=== PATIENT | female | born 2000 | race Caucasian/White ===

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

== ENCOUNTER 2019-03-12 21:22 | Emergency (ER) | payer OTHER ==
[2019-03-12 21:28] VITALS: BP 133/73; TEMP 98.3; BMI 20.2
--- NOTE | 2019-03-12 21:30 | PDOC ---
Rapid Medical Evaluation Chief Complaint: Injury Time Seen by Provider: 03/12/19 21:24 Medical Evaluation: Allergies Allergy/AdvReac Type Severity Reaction Status Date / Time No Known Allergies Allergy Verified 08/27/18 03:14 03/12/19 21:26 I have performed a brief in-person evaluation of this patient. The patient presents with a chief complaint of: bruising , concerns as is being worked up for Lupus and worries could be associated. Pertinent physical exam findings: Pale, ecchymosis to anterior left ankle I have ordered the following: UA/ uCG The patient will proceed to the ED for further evaluation. Discharge Disposition - Diagnosis Bruising - Discharge Dispostion Condition at time of disposition: Stable - Referrals - Patient Instructions - Post Discharge Activity
--- NOTE | 2019-03-12 21:56 | PDOC ---
History of Present Illness - General Chief Complaint: Injury Stated Complaint: BRUised L ANKLE Time Seen by Provider: 03/12/19 21:24 - History of Present Illness Initial Comments: 03/12/19 21:51 Chief complaint: Ankle bruising Patient is a 18-year-old female who was recently diagnosed with lupus, but has not gotten full information regarding her diagnosis, is not on any treatment or medication. Patient saw her doctor today and had some work-up but she noticed this evening that she had bruising to the front of her ankle and was told anytime she had bruising to have it evaluated. Patient denies any other bleeding. GENERAL/CONSTITUTIONAL: No fever, weakness. dizziness HEAD, EYES, EARS, NOSE AND THROAT: No change in vision. No ear pain or discharge. No sore throat. CARDIOVASCULAR: No chest pain RESPIRATORY: No shortness of breath or cough GASTROINTESTINAL: No pain, nausea, vomiting, diarrhea or constipation GENITOURINARY: No dysuria MUSCULOSKELETAL: No neck or back pain SKIN: No rash, + bruising NEUROLOGIC: No headache, vertigo, loss of consciousness, or loss of sensation. GENERAL: The patient is awake, alert, and fully oriented, in no acute distress. HEAD: Normal with no signs of trauma. EYES: Pupils equal, round and reactive to light, sclera anicteric, conjunctiva clear. ENT: pharynx: no erythema, no exudate, uvula midline NECK: supple CHEST: clear, nontender, rr ABD: soft, nontender BACK: no tenderness or signs of injury EXTREMITIES: Left lower extremity with 6 cm x 3 cm oval area of bruising over the anterior ankle joint, no swelling, no tenderness, neurovascular intact. Rest of extremities, normal range of motion, no edema. NEUROLOGICAL: Normal speech, normal gait. SKIN: Warm, Dry Past History - Past Medical History Allergies/Adverse Reactions: Allergies Allergy/AdvReac Type Severity Reaction Status Date / Time No Known Allergies Allergy Verified 08/27/18 03:14 Home Medications: Ambulatory Orders Albuterol Sulfate Inhaler - [Ventolin HFA Inhaler -] 1 - 2 inh PO QID PRN #1 inhaler 04/17/16 Asthma: Yes COPD: No Psychiatric Problems: Yes (anxiety, depression) Other medical history: lupus - Immunization History Immunization Up to Date: No (Not sure) - Psycho Social/Smoking Cessation Hx Smoking History: Current every day smoker Have you smoked in the past 12 months: No Number of Cigarettes Smoked Daily: 4 Information on smoking cessation initiated: No 'Breaking Loose' booklet given: 10/29/17 Hx Alcohol Use: Yes (Social) Drug/Substance Use Hx: No Substance Use Type: None *Physical Exam - Vital Signs Last Vital Signs Temp Pulse Resp BP Pulse Ox 98.3 F 114 H 19 133/73 97 03/12/19 21:25 03/12/19 21:25 03/12/19 21:25 03/12/19 21:25 03/12/19 21:25 ED Treatment Course - LABORATORY CBC & Chemistry Diagram: 03/12/19 21:00 03/12/19 21:00 Medical Decision Making - Medical Decision Making 03/12/19 21:53 18-year-old female with recent diagnosis of lupus, not fully aware of what her disease processes came to the ER tonight because she had bruising to the anterior ankle, unaware of injury, nontender, not swollen, no other complaints of bleeding. Patient came to the ER because her doctor told her if she ever had bruising to get it evaluated. Patient had work-up today, not sure of whether she had blood counts done and results today. Patient is unaware of any abnormalities. Patient does not require any imaging, there is no swelling no need for ultrasound. Will check blood counts, basic labs including platelets and coags 03/12/19 22:08 repeat hr 99 after exam. labs pending cbc normal, platelets 227, commissary clerk and coags pending if no acute issue d/c and follow up pmd tomorrow s/o PA. Camila Huff Discharge - Discharge Information Problems reviewed: Yes Clinical Impression/Diagnosis: Bruising Condition: Stable Disposition: HOME - Admission No - Follow up/Referral - Patient Discharge Instructions Additional Instructions: Follow-up with your doctor tomorrow for further instructions and evaluation Return to the ER if fever, shortness of breath, bleeding from anywhere else although your labs were stable today - Post Discharge Activity
[2019-03-12 22:06] LABS: HEMATOCRIT 42.6 % (32.4-45.2); HEMOGLOBIN 14.5 GM/dL (10.7-15.3); MCH 30.3 pg (25.7-33.7); MCHC 34.1 g/dl (32.0-36.0); MEAN PLT VOLUME 8.4 fl (7.5-11.1); PLATELET COUNT 227 K/MM3 (134-434); RBC 4.79 M/mm3 (3.60-5.2); RDW 12.7 % (11.6-15.6); WHITE BLOOD COUNT 10.1 K/mm3 (4.0-10.0)
[2019-03-12 22:18] LABS: INR 1.05 (0.83-1.09); PROTHROMBIN TIME (PATIENT) 12.4 SEC (9.7-13.0)
[2019-03-12 22:21] LABS: ACTIVATED PTT 34.9 SECONDS (25.2-36.5)
[2019-03-12 22:28] LABS: BLOOD UREA NITROGEN 14.1 mg/dL (7-18); CALCIUM 8.8 mg/dL (8.5-10.1); CREATININE 0.9 mg/dL (0.55-1.3); POTASSIUM 3.5 mmol/L (3.5-5.1)
--- NOTE | 2019-03-12 22:54 | PDOC ---
*Physical Exam - Vital Signs Last Vital Signs Temp Pulse Resp BP Pulse Ox 98.3 F 114 H 19 133/73 97 03/12/19 21:25 03/12/19 21:25 03/12/19 21:25 03/12/19 21:25 03/12/19 21:25 <Jaleel Delvalle - Last Filed: 03/12/19 22:55> - Vital Signs Last Vital Signs Temp Pulse Resp BP Pulse Ox 98.3 F 114 H 19 133/73 97 03/12/19 21:25 03/12/19 21:25 03/12/19 21:25 03/12/19 21:25 03/12/19 21:25 <Alicia Hidalgo - Last Filed: 03/12/19 22:56> ED Treatment Course - LABORATORY CBC & Chemistry Diagram: 03/12/19 21:00 03/12/19 21:00 - ADDITIONAL ORDERS Additional order review: Laboratory Results 03/12/19 03/12/19 21:00 21:00 PT with INR 12.40 INR 1.05 PTT (Actin FS) 34.9 Sodium 140 Potassium 3.5 Chloride 108 H Carbon Dioxide 26 Anion Gap 6 L BUN 14.1 Creatinine 0.9 Est GFR (CKD-EPI)AfAm 107.43 Est GFR (CKD-EPI)NonAf 92.69 Random Glucose 89 Calcium 8.8 03/12/19 21:00 RBC 4.79 MCV 89.0 MCHC 34.1 RDW 12.7 MPV 8.4 <Jaleel Delvalle - Last Filed: 03/12/19 22:55> - LABORATORY CBC & Chemistry Diagram: 03/12/19 21:00 03/12/19 21:00 - ADDITIONAL ORDERS Additional order review: Laboratory Results 03/12/19 03/12/19 21:00 21:00 PT with INR 12.40 INR 1.05 PTT (Actin FS) 34.9 Sodium 140 Potassium 3.5 Chloride 108 H Carbon Dioxide 26 Anion Gap 6 L BUN 14.1 Creatinine 0.9 Est GFR (CKD-EPI)AfAm 107.43 Est GFR (CKD-EPI)NonAf 92.69 Random Glucose 89 Calcium 8.8 03/12/19 21:00 RBC 4.79 MCV 89.0 MCHC 34.1 RDW 12.7 MPV 8.4 <Alicia Hidalgo - Last Filed: 03/12/19 22:56> Medical Decision Making - Medical Decision Making The patient was seen and evaluated in conjunction with ALY Hidalgo under my direct supervision, ancillary studies were revieweI agree with the plan as outlined by ALY Hidalgo . 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
[2019-03-12 23:09] VITALS: PULSE 98
== END 2019-03-12 23:20 | disposition home or self-care (01) ==
LOC: JER 21:22
DX: S90.02XA Contusion of left ankle, initial encounter (principal); X58.XXXA Exposure to other specified factors, initial encounter; Y93.89 Activity, other specified; Y92.89 Other specified places as the place of occurrence of the external cause; Y99.8 Other external cause status; R58 Hemorrhage, not elsewhere classified; J45.909 Unspecified asthma, uncomplicated; F41.8 Other specified anxiety disorders; F32.9 Major depressive disorder, single episode, unspecified; F17.210 Nicotine dependence, cigarettes, uncomplicated
CPT/HCPCS: 36415; 80048; 85027; 85610; 85730; 99282-25

== ENCOUNTER 2019-05-04 18:23 | Emergency (ER) | payer OTHER ==
--- NOTE | 2019-05-04 18:39 | PDOC ---
Rapid Medical Evaluation Time Seen by Provider: 05/04/19 18:39 Medical Evaluation: Allergies Allergy/AdvReac Type Severity Reaction Status Date / Time No Known Allergies Allergy Verified 08/27/18 03:14 05/04/19 18:40 I have performed a brief in-person evaluation of this patient. The patient presents with a chief complaint of: abdominal pain Pertinent physical exam findings:stable and in NAD, non-focal I have ordered the following:labs The patient will proceed to the ED for further evaluation.
[2019-05-04 18:41] VITALS: BP 101/57; PULSE 90; TEMP 98.6; BMI 20.4
[2019-05-04 18:59] LABS: BASO % 0.8 % (0-2.0); EOS % 21.4 % (0-4.5); HEMATOCRIT 41.1 % (32.4-45.2); HEMOGLOBIN 14.4 GM/dL (10.7-15.3); LYMPH % 39.2 % (8-40); MCH 31.1 pg (25.7-33.7); MEAN CELL VOLUME 88.9 fl (80-96); MEAN PLT VOLUME 8.8 fl (7.5-11.1); MONO % 4.7 % (3.8-10.2); NEUT % 33.9 % (42.8-82.8); PLATELET COUNT 227 K/MM3 (134-434); RBC 4.62 M/mm3 (3.60-5.2); RDW 12.8 % (11.6-15.6); WHITE BLOOD COUNT 8.1 K/mm3 (4.0-10.0)
[2019-05-04 19:02] LABS: EPI CELLS 8.5 /HPF (0-5/HPF); HYALINE CASTS 11 /lpf (0-8); PH,URINE 5.5 (5.0-8.0); URINE APPEARANCE CLOUDY; URINE BACTERIA 206.1 /hpf (NEGATIVE); URINE BILIRUBIN NEGATIVE (NEGATIVE); URINE COLOR YELLOW; URINE GLUCOSE (UA) NEGATIVE (NEGATIVE); URINE KETONE TRACE (NEGATIVE); URINE LEUK ESTERASE NEGATIVE (NEGATIVE); URINE NITRITE NEGATIVE (NEGATIVE); URINE PROTEIN NEGATIVE (NEGATIVE); URINE UROBILINOGEN 0.2 mg/dL (0.2-1.0); URINE WBC 5 /hpf (0-5)
--- NOTE | 2019-05-04 19:25 | PDOC ---
History of Present Illness - General Chief Complaint: Pain Stated Complaint: ABDOMINAL PAIN Time Seen by Provider: 05/04/19 18:39 History Source: Patient - History of Present Illness Initial Comments: 05/04/19 19:34 18 year old c/o LLQ pain/ left flank pain since 11 am. denies nausea/ vomiting. denies dysuria, hematuria. PMHX: " currently seeing job coach/job developer for [email or web address]" LMP: now. 05/05/19 06:07 Past History - Past Medical History Allergies/Adverse Reactions: Allergies Allergy/AdvReac Type Severity Reaction Status Date / Time No Known Allergies Allergy Verified 05/04/19 18:41 Home Medications: Ambulatory Orders Albuterol Sulfate Inhaler - [Ventolin HFA Inhaler -] 1 - 2 inh PO QID PRN #1 inhaler 04/17/16 Ibuprofen 600 mg PO QID PRN #20 tablet 05/04/19 Asthma: Yes COPD: No Psychiatric Problems: Yes (anxiety, depression) - Immunization History Immunization Up to Date: No (Not sure) - Psycho Social/Smoking Cessation Hx Smoking History: Current every day smoker Have you smoked in the past 12 months: No Number of Cigarettes Smoked Daily: 5 Information on smoking cessation initiated: No 'Breaking Loose' booklet given: 10/29/17 Hx Alcohol Use: Yes (Social) Drug/Substance Use Hx: No Substance Use Type: None Review of Systems - Review of Systems Able to Perform ROS?: Yes Is the patient limited Cam[place]onian proficient: No ABD/GI: Yes: Diarrhea, Nausea, Abdominal cramping : Yes: Flank Pain Integumentary: No: Symptoms Reported, See HPI, Bruising, Change in Color, Change in Hair/Nails, Dryness, Erythema, Flushing, Lesions, Lumps, Pallor, Pruritus, Rash, Sweating, Other *Physical Exam - Vital Signs Last Vital Signs Temp Pulse Resp BP Pulse Ox 98.6 F 90 18 101/57 L 98 05/04/19 18:37 05/04/19 18:37 05/04/19 18:37 05/04/19 18:37 05/04/19 18:37 - Physical Exam General Appearance: Yes: Appropriately Dressed Respiratory/Chest: positive: Lungs Clear, Normal Breath Sounds Cardiovascular: positive: Regular Rhythm, Regular Rate Gastrointestinal/Abdominal: positive: Tender (LLQ. no RLQ pain), Soft Musculoskeletal: positive: CVA Tenderness (L) (mild) Extremity: positive: Normal Capillary Refill, Normal Inspection, Normal Range of Motion Integumentary: positive: Pale Neurologic: positive: Fully Oriented, Alert ED Treatment Course - LABORATORY CBC & Chemistry Diagram: 05/04/19 18:49 05/04/19 18:49 - ADDITIONAL ORDERS Additional order review: Laboratory Results 05/04/19 18:49 Urine Color Yellow Urine Appearance Cloudy Urine pH 5.5 Ur Specific [place] 1.026 Urine Protein Negative Urine Glucose (UA) Negative Urine Ketones Trace H Urine Blood 3+ H Urine Nitrite Negative Urine Bilirubin Negative Urine Urobilinogen 0.2 Ur Leukocyte Esterase Negative Urine WBC (Auto) 5 Urine Casts (Auto) 11 U Epithel Cells (Auto) 8.5 Urine Bacteria (Auto) 206.1 05/04/19 18:49 RBC 4.62 MCV 88.9 MCHC 35.0 RDW 12.8 MPV 8.8 Neutrophils % 33.9 L Lymphocytes % 39.2 Monocytes % 4.7 Eosinophils % 21.4 H* Basophils % 0.8 ED Progress Note - Progress Note Progress Note: 05/04/19 23:10 Left ovarian cyst; Abdominal pain P: cbc cmp Ua CTAP TVUS Medical Decision Making - Medical Decision Making 05/04/19 23:12 patient with improvement in pain will give toradol Discharge - Discharge Information Problems reviewed: Yes Clinical Impression/Diagnosis: Left ovarian cyst Abdominal pain Qualifiers: Abdominal location: left lower quadrant Qualified Code(s): R10.32 - Left lower quadrant pain Condition: Improved Disposition: HOME - Additional Discharge Information Prescriptions: Ibuprofen 600 mg PO QID PRN #20 tablet PRN Reason: Pain - Follow up/Referral Referrals: Gayathri Boyer [Primary Care Provider] - - Patient Discharge Instructions Patient Printed Discharge Instructions: DI for Ovarian Cyst Additional Instructions: take ibuprofen every 6 hours as needed for pain follow up with your doctor / obstetrics gynecology physician as soon as possible return to the ER for any worsening symptoms - Post Discharge Activity
[2019-05-04 19:30] LABS: BILIRUBIN,TOTAL 0.3 mg/dL (0.2-1); BLOOD UREA NITROGEN 10.1 mg/dL (7-18); CALCIUM 8.8 mg/dL (8.5-10.1); CREATININE 0.7 mg/dL (0.55-1.3); POTASSIUM 3.8 mmol/L (3.5-5.1); TOT PROT 7.1 g/dl (6.4-8.2); URINE RBC 11.5 /hpf (0-4); YEAST NONE SEEN (NEGATIVE)
[2019-05-04 19:38] LABS: PLATELET ESTIMATE ADEQUATE
[2019-05-04] MEDS ORDERED: SODIUM CHLORIDE 0.9% 500 ML INFUS.BAG IV ONE (19:41)
[2019-05-04] MEDS ORDERED: ACETAMINOPHEN 1000 MG/100 ML VIAL (NON FORMULARY) IVPB ONE (19:41)
--- NOTE | 2019-05-04 19:52 | PDOC ---
*Physical Exam - Vital Signs Last Vital Signs Temp Pulse Resp BP Pulse Ox 98.6 F 90 18 101/57 L 98 05/04/19 18:37 05/04/19 18:37 05/04/19 18:37 05/04/19 18:37 05/04/19 18:37 ED Treatment Course - LABORATORY CBC & Chemistry Diagram: 05/04/19 18:49 05/04/19 18:49 - ADDITIONAL ORDERS Additional order review: Laboratory Results 05/04/19 05/04/19 18:49 18:49 Sodium 138 Potassium 3.8 Chloride 109 H Carbon Dioxide 25 Anion Gap 5 L BUN 10.1 Creatinine 0.7 Est GFR (CKD-EPI)AfAm 145.58 Est GFR (CKD-EPI)NonAf 125.60 Random Glucose 98 Calcium 8.8 Total Bilirubin 0.3 AST 14 L ALT 16 Alkaline Phosphatase 64 Total Protein 7.1 Albumin 4.0 Urine Color Yellow Urine Appearance Cloudy Urine pH 5.5 Ur Specific [place] 1.026 Urine Protein Negative Urine Glucose (UA) Negative Urine Ketones Trace H Urine Blood 3+ H Urine Nitrite Negative Urine Bilirubin Negative Urine Urobilinogen 0.2 Ur Leukocyte Esterase Negative Urine WBC (Auto) 5 Urine RBC (Auto) 11.5 Urine Casts (Auto) 11 U Epithel Cells (Auto) 8.5 Urine Bacteria (Auto) 206.1 Urine Yeast (Auto) None seen 05/04/19 18:49 RBC 4.62 MCV 88.9 MCHC 35.0 RDW 12.8 MPV 8.8 Neutrophils % 33.9 L Lymphocytes % 39.2 Monocytes % 4.7 Eosinophils % 21.4 H* Basophils % 0.8 Medical Decision Making - Medical Decision Making 05/04/19 19:52 Patient seen by the advanced practice provider under my direct supervision. Ancillary testing reviewed as necessary. I agree with plan as outlined by the advanced practice provider. Discharge - Discharge Information Problems reviewed: Yes Clinical Impression/Diagnosis: Left ovarian cyst Abdominal pain Qualifiers: Abdominal location: left lower quadrant Qualified Code(s): R10.32 - Left lower quadrant pain Disposition: HOME - Additional Discharge Information Prescriptions: Ibuprofen 600 mg PO QID PRN #20 tablet PRN Reason: Pain - Follow up/Referral Referrals: Gayathri Boyer [Primary Care Provider] - - Patient Discharge Instructions Patient Printed Discharge Instructions: DI for Ovarian Cyst Additional Instructions: take ibuprofen every 6 hours as needed for pain follow up with your doctor / vice president sales and marketing as soon as possible return to the ER for any worsening symptoms - Post Discharge Activity
[2019-05-04] MEDS ORDERED: ACETAMINOPHEN INJECTION 100 ML IVPB ONE (21:01)
[2019-05-04] MEDS ORDERED: KETOROLAC TROMETHAMINE 30 MG/1 ML VIAL IVPUSH ONE (23:07)
[2019-05-04] MEDS ORDERED: KETOROLAC TROMETHAMINE 30 MG/1 ML VIAL ONE (23:32)
== END 2019-05-05 00:24 | disposition home or self-care (01) ==
LOC: JER 18:23
PROC: 3E033NZ Introduction of Analgesics, Hypnotics, Sedatives into Peripheral Vein, Percutaneous Approach (ICD-10-PCS; principal; 2019-05-04)
PROC: 3E0333Z Introduction of Anti-inflammatory into Peripheral Vein, Percutaneous Approach (ICD-10-PCS; 2019-05-04)
DX: N83.202 Unspecified ovarian cyst, left side (principal); J45.909 Unspecified asthma, uncomplicated; F41.9 Anxiety disorder, unspecified; F32.9 Major depressive disorder, single episode, unspecified; F17.210 Nicotine dependence, cigarettes, uncomplicated
CPT/HCPCS: 36415; 74177-TC; 76830-TC; 80053; 81003; 84703; 85025; 99282-25; J0131

== ENCOUNTER 2019-07-16 08:23 | Emergency (ER) | payer OTHER ==
[2019-07-16 08:33] VITALS: BMI 19.8
--- NOTE | 2019-07-16 08:49 | PDOC ---
History of Present Illness - General Chief Complaint: Pain, Acute Stated Complaint: ABD. PAIN Time Seen by Provider: 07/16/19 08:48 History Source: Patient Exam Limitations: No Limitations - History of Present Illness Initial Comments: 07/16/19 09:07 18yF w PMHx asthma, eczema presenting w 2d intermittent sharp/shooting RLQ pain that acutely worsening in intensity yesterday afternoon. Did not take any pain meds. Was diagnosed in past w L ovarian cyst causing LLQ pain. Denies fevers, nausea/vomiting, urinary/bowel mvmt changes, vaginal discharge/bleeding. No OBGYN Past History - Past Medical History Allergies/Adverse Reactions: Allergies Allergy/AdvReac Type Severity Reaction Status Date / Time No Known Allergies Allergy Verified 05/04/19 18:41 Home Medications: Ambulatory Orders Albuterol Sulfate Inhaler - [Ventolin HFA Inhaler -] 1 - 2 inh PO QID PRN #1 inhaler 04/17/16 Ibuprofen 600 mg PO QID PRN #20 tablet 05/04/19 Doxycycline Hyclate 100 mg PO BID 14 Days #28 tablet 07/16/19 Asthma: Yes COPD: No Psychiatric Problems: Yes (anxiety, depression) - Immunization History Immunization Up to Date: No (Not sure) - Psycho Social/Smoking Cessation Hx Smoking History: Never smoked Have you smoked in the past 12 months: No Number of Cigarettes Smoked Daily: 5 Information on smoking cessation initiated: No 'Breaking Loose' booklet given: 10/29/17 Hx Alcohol Use: No Drug/Substance Use Hx: No Substance Use Type: None Review of Systems - Review of Systems Constitutional: No: Chills, Fever HEENTM: No: Eye Pain, Nose Pain, Throat Pain Respiratory: No: Cough, Shortness of Breath Cardiac (ROS): No: Chest Pain, Palpitations ABD/GI: No: Abdominal Distended, Constipated, Diarrhea, Nausea, Vomiting : No: Burning, Dysuria Musculoskeletal: No: Back Pain, Joint Pain Integumentary: No: Bruising, Flushing Neurological: No: Headache, Seizure Psychiatric: No: Anxiety, Depression Endocrine: No: Intolerance to Cold, Intolerance to Heat Hematologic/Lymphatic: No: Anemia, Blood Clots *Physical Exam - Vital Signs Last Vital Signs Temp Pulse Resp BP Pulse Ox 98.2 F 96 H 18 90/70 98 07/16/19 08:30 07/16/19 08:30 07/16/19 08:30 07/16/19 08:30 07/16/19 08:30 - Physical Exam General Appearance: Yes: Nourished, Appropriately Dressed, Moderate Distress HEENT: positive: EOMI, BETO, Normal Voice, Hearing Grossly Normal. negative: Scleral Icterus (R), Scleral Icterus (L) Respiratory/Chest: positive: Lungs Clear, Normal Breath Sounds. negative: Chest Tender, Respiratory Distress Cardiovascular: positive: Regular Rhythm, S1, S2, Tachycardia. negative: Edema, Murmur Female Pelvic Exam: positive: normal external exam, cervical os closed, normal adnexa. negative: CMT, discharge, vaginal bleeding Gastrointestinal/Abdominal: positive: Normal Bowel Sounds, Tender (moderate tender RLQ), Flat, Soft, Guarding (RLQ). negative: Organomegaly Musculoskeletal: negative: CVA Tenderness (R), CVA Tenderness (L) Integumentary: positive: Normal Color. negative: Dry Neurologic: positive: claim adjuster II-XII NML intact, Fully Oriented, Alert, Normal Response, Responsive. negative: Sensory Deficit, Confused, Disoriented ED Treatment Course - LABORATORY CBC & Chemistry Diagram: 07/16/19 09:16 07/16/19 09:16 Medical Decision Making - Medical Decision Making 07/16/19 09:06 TVUS - no evidence of ovarian torsion, single L ovarian cyst 1.8x1.1cm, normal uterus CT A/P - no appendicitis, uropathy, or acute abdominal pathology --- 18yF w PMHx asthma, eczema presenting w 2d intermittent sharp/shooting RLQ pain possibly d/t PID. Low concern for (neg) vs ovarian torsion (neg US) vs R ovarian cyst (not visualized on US) vs appendicitis vs nephrolithasis Given tylenol, doxycycline, rocephin, toradol DC w OBGYN f/u and doxycycline prescription - pending G/C Discharge - Discharge Information Problems reviewed: Yes Clinical Impression/Diagnosis: PID (acute pelvic inflammatory disease) Condition: Improved Disposition: HOME - Additional Discharge Information Prescriptions: Doxycycline Hyclate 100 mg PO BID 14 Days #28 tablet - Follow up/Referral Referrals: Shannon Garrido MD [Staff Physician] - - Patient Discharge Instructions Patient Printed Discharge Instructions: DI for Pelvic Inflammatory Disease Additional Instructions: Take the prescribed doxycycline as directed. Take tylenol or ibuprofen if you have pain. Follow up with the referred OBGYN. - Post Discharge Activity
[2019-07-16] MEDS ORDERED: ACETAMINOPHEN 1000 MG/100 ML VIAL (NON FORMULARY) IVPB ONE (09:21)
[2019-07-16 09:41] LABS: BASO % 0.8 % (0-2.0); EOS % 14.1 % (0-4.5); HEMATOCRIT 40.8 % (32.4-45.2); HEMOGLOBIN 14.1 GM/dL (10.7-15.3); LYMPH % 42.1 % (8-40); MCH 31.1 pg (25.7-33.7); MCHC 34.6 g/dl (32.0-36.0); MEAN CELL VOLUME 89.8 fl (80-96); MEAN PLT VOLUME 8.4 fl (7.5-11.1); MONO % 9.6 % (3.8-10.2); NEUT % 33.4 % (42.8-82.8); PLATELET COUNT 216 K/MM3 (134-434); RBC 4.54 M/mm3 (3.60-5.2); RDW 12.6 % (11.6-15.6); WHITE BLOOD COUNT 4.6 K/mm3 (4.0-10.0)
[2019-07-16 09:51] LABS: HYALINE CASTS 12 /lpf (0-8); URINE APPEARANCE CLEAR; URINE BILIRUBIN NEGATIVE (NEGATIVE); URINE COLOR YELLOW; URINE GLUCOSE (UA) NEGATIVE (NEGATIVE); URINE KETONE TRACE (NEGATIVE); URINE LEUK ESTERASE NEGATIVE (NEGATIVE); URINE NITRITE NEGATIVE (NEGATIVE); URINE PROTEIN NEGATIVE (NEGATIVE); URINE RBC 7 /hpf (0-4); URINE WBC 2 /hpf (0-5)
[2019-07-16] MEDS ORDERED: ACETAMINOPHEN INJECTION 100 ML IVPB ONE (09:54)
[2019-07-16 09:55] LABS: INR 1.07 (0.83-1.09); PROTHROMBIN TIME (PATIENT) 12.6 SEC (9.7-13.0)
[2019-07-16 10:11] LABS: BILIRUBIN,TOTAL 0.3 mg/dL (0.2-1); BLOOD UREA NITROGEN 8.4 mg/dL (7-18); CALCIUM 8.6 mg/dL (8.5-10.1); CREATININE 0.6 mg/dL (0.55-1.3); POTASSIUM 3.5 mmol/L (3.5-5.1); TOT PROT 7.1 g/dl (6.4-8.2)
--- NOTE | 2019-07-16 12:15 | PDOC ---
Attending Attestation - Resident Resident Name: Teofilo Bravo - ED Attending Attestation I have performed the following: I have examined & evaluated the patient, The case was reviewed & discussed with the resident, I agree w/resident's findings & plan - HPI HPI: 07/16/19 12:12 Healthy 18-year-old female with history of ovarian cysts presents with 3 days of right lower quadrant pain. Patient initially had about a 5-minute episode of sharp 10 out of 10 pain localized to the right lower quadrant/pelvis 3 days ago, resolved but then recurred the following day and has been persistent since then, waxing and waning in severity. No associated GI or complaints, began menstruation 2 days prior to pain onset. No fevers or chills. Has had similar pain on the left side which she attributes to a known left ovarian cyst, was evaluated here with ultrasound and CAT scan 2 months ago. Denies any vaginal discharge, is sexually active. - Physicial Exam PE: 07/16/19 12:14 Vital signs stable, afebrile, negative Ambulatory, no acute distress Abdomen is soft/nondistended. Tenderness with guarding throughout the lower abdomen, no rebound, no CVA tenderness, no palpable masses or hernias. Pelvic per resident. - Medical Decision Making 07/16/19 12:14 Healthy 18-year-old female with recurring pelvic pain, known left ovarian cyst, now with right-sided focality. Afebrile, negative, but with significant findings on examination. Labs, urinalysis Ultrasound shows known left ovarian cyst, small follicles on the right, no evidence of torsion CT of the abdomen and pelvis given localizing symptoms If above is within normal limits, will treat empirically for PID given recurring pelvic pain without significant findings on imaging
[2019-07-16] MEDS ORDERED: DOXYCYCLINE HYCLATE 100 MG CAPSULE PO ONE ×2 (13:53→14:29)
[2019-07-16] MEDS ORDERED: KETOROLAC TROMETHAMINE 30 MG/1 ML VIAL IVPUSH ONE (14:09)
[2019-07-16] MEDS ORDERED: cefTRIAXone SODIUM 1 GM VIAL ONE (14:30)
[2019-07-16] MEDS ORDERED: KETOROLAC TROMETHAMINE 30 MG/1 ML VIAL ONE (14:30)
[2019-07-16] MEDS ORDERED: LIDOCAINE HCL 1%, 10 MG/ML (20ML VIAL) ONE (14:31)
[2019-07-16 15:02] VITALS: BP 100/64; PULSE 69; TEMP 98
== END 2019-07-16 14:50 | disposition home or self-care (01) ==
LOC: JER 08:23
PROC: 3E033NZ Introduction of Analgesics, Hypnotics, Sedatives into Peripheral Vein, Percutaneous Approach (ICD-10-PCS; principal; 2019-07-16)
PROC: 3E0333Z Introduction of Anti-inflammatory into Peripheral Vein, Percutaneous Approach (ICD-10-PCS; 2019-07-16)
PROC: 3E02329 Introduction of Other Anti-infective into Muscle, Percutaneous Approach (ICD-10-PCS; 2019-07-16)
DX: N73.9 Female pelvic inflammatory disease, unspecified (principal); J45.909 Unspecified asthma, uncomplicated; L30.9 Dermatitis, unspecified
CPT/HCPCS: 36415; 74177-TC; 76830-TC; 80053; 81003; 84703; 85025; 85610; 86850; 86900; 86901; 87086; 87491; 87591; 99282-25; J0131; Q9967

== ENCOUNTER 2020-01-15 17:28 | Emergency (ER) | payer OTHER ==
[2020-01-15 17:53] VITALS: BP 102/48; PULSE 100; TEMP 99.2; BMI 19.2
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
[2020-01-15 18:57] LABS: BASO % 0.7 % (0-2.0); HEMATOCRIT 45.8 % (32.4-45.2); HEMOGLOBIN 15.6 GM/dL (10.7-15.3); LYMPH % 22.9 % (8-40); MCH 31.3 pg (25.7-33.7); MCHC 34.1 g/dl (32.0-36.0); MEAN CELL VOLUME 91.7 fl (80-96); MEAN PLT VOLUME 8.8 fl (7.5-11.1); MONO % 4.1 % (3.8-10.2); NEUT % 52.3 % (42.8-82.8); PLATELET COUNT 228 K/MM3 (134-434); RBC 4.99 M/mm3 (3.60-5.2); RDW 13.1 % (11.6-15.6); WHITE BLOOD COUNT 6.6 K/mm3 (4.0-10.0)
[2020-01-15 19:10] LABS: INR 1.03 (0.83-1.09); PROTHROMBIN TIME (PATIENT) 12.2 SEC (9.7-13.0)
[2020-01-15 19:13] LABS: ACTIVATED PTT 28.3 SECONDS (25.2-36.5)
[2020-01-15 19:34] LABS: URINE APPEARANCE Clear; URINE BILIRUBIN Negative (NEGATIVE); URINE COLOR Yellow; URINE GLUCOSE (UA) Negative (NEGATIVE); URINE KETONE 1+ (NEGATIVE); URINE LEUK ESTERASE Negative (NEGATIVE); URINE NITRITE Negative (NEGATIVE); URINE PROTEIN Negative (NEGATIVE); URINE UROBILINOGEN 0.2 mg/dL (0.2-1.0)
[2020-01-15 19:40] LABS: ALBUMIN 4.2 g/dl (3.4-5.0); ALK PHOS 72 U/L (45-117); ANION GAP 7 MMOL/L (8-16); BILIRUBIN,TOTAL 0.7 mg/dL (0.2-1); BLOOD UREA NITROGEN 10.1 mg/dL (7-18); CALCIUM 9.1 mg/dL (8.5-10.1); CHLORIDE 106 mmol/L (98-107); CO2 26 mmol/L (21-32); CREATININE 0.7 mg/dL (0.55-1.3); GLUCOSE,RANDOM 104 mg/dL (74-106); POTASSIUM 3.9 mmol/L (3.5-5.1); SGOT/AST 20 U/L (15-37); SGPT/ALT 25 U/L (13-61); SODIUM 140 mmol/L (136-145); TOT PROT 7.6 g/dl (6.4-8.2)
[2020-01-15] MEDS ORDERED: KETOROLAC TROMETHAMINE 30 MG/1 ML VIAL IM ONE (19:53)
[2020-01-15 20:25] LABS: EPI CELLS 30.9 /uL (0-25.1); HYALINE CASTS 5.39 /uL (0-3.1); URINE BACTERIA 1200.5 /uL (0-1359); URINE RBC 9.7 /uL (0-23.9); URINE WBC 29.2 /uL (0-25.8)
[2020-01-15 20:29] LABS: URINE CRYSTALS NEGATIVE /hpf
--- NOTE | 2020-01-15 20:36 | PDOC ---
*Physical Exam - Vital Signs Last Vital Signs Temp Pulse Resp BP Pulse Ox 99.2 F 100 H 16 102/48 L 98 01/15/20 17:42 01/15/20 17:42 01/15/20 17:42 01/15/20 17:42 01/15/20 17:42 - Physical Exam Gastrointestinal/Abdominal: positive: Normal Bowel Sounds, Soft. negative: Tender ED Treatment Course - LABORATORY CBC & Chemistry Diagram: 01/15/20 18:17 01/15/20 18:17 - ADDITIONAL ORDERS Additional order review: Laboratory Results 01/15/20 01/15/20 01/15/20 18:17 18:17 18:17 PT with INR 12.20 INR 1.03 PTT (Actin FS) 28.3 Sodium 140 Potassium 3.9 Chloride 106 Carbon Dioxide 26 Anion Gap 7 L BUN 10.1 Creatinine 0.7 Est GFR (CKD-EPI)AfAm 144.56 Est GFR (CKD-EPI)NonAf 124.72 Random Glucose 104 Calcium 9.1 Total Bilirubin 0.7 AST 20 ALT 25 Alkaline Phosphatase 72 Total Protein 7.6 Albumin 4.2 Beta HCG, Quant < 1.0 Urine Color Yellow Urine Appearance Clear Urine pH 5.0 Ur Specific [place] >= 1.030 Urine Protein Negative Urine Glucose (UA) Negative Urine Ketones 1+ H Urine Blood Trace-intact Urine Nitrite Negative Urine Bilirubin Negative Urine Urobilinogen 0.2 Ur Leukocyte Esterase Negative Urine WBC (Auto) 29.2 Urine RBC (Auto) 9.7 Urine Casts (Auto) 5.39 U Pathogenic Cast Auto Negative U Epithel Cells (Auto) 30.9 Urine Crystals (Auto) Negative Urine Bacteria (Auto) 1200.5 01/15/20 18:17 RBC 4.99 MCV 91.7 MCHC 34.1 RDW 13.1 MPV 8.8 Neutrophils % 52.3 D Lymphocytes % 22.9 D Monocytes % 4.1 Eosinophils % 20.0 H Basophils % 0.7 ED Progress Note - Progress Note Progress Note: 01/15/20 20:38 Received patient from ALY Rubi Briefly this is a 19-year-old woman with past medical history of PID and ovarian cyst who presents emergency department for lower abdominal pain. Patient believes the pain is consistent with her usual ovarian cyst pain but was unable to see her DIRECTOR ENVIRONMENTAL today. Urinalysis is not suggestive of infection Patient is pending transvaginal ultrasound for disposition Medical Decision Making - Medical Decision Making 01/15/20 20:36 Transvaginal ultrasound is read by Dr. Peña: Unilocular 2.9 x 2 cm right ovarian cyst is noted. No Doppler evidence of ovarian torsion. Interval resolution of 1.7 cm left ovarian cyst is noted. We will discharge patient home to follow-up with her DIRECTOR ENVIRONMENTAL as there is no acute gynecological issue. Patient is previously aware of ovarian cysts and will need further evaluation as an outpatient. I discussed the physical exam findings, ancillary test results and final diagnoses with the patient. I answered all of the patient's questions. The patient was satisfied with the care received and felt comfortable with the discharge plan and treatment plan. The patient will call their primary care physician within 24 hours to arrange follow-up and will return to the Emergency Department with any new, persistent or worsening symptoms. Portions of this note have been documented using voice recognition software. As a result, errors may occur in the computer technology teacher process. Effort has been made to correct all grammatical and computer technology teacher error, but some may have been missed which may produce sporadic inaccurate computer technology teacher or nonsensical phrases. Discharge - Discharge Information Problems reviewed: Yes Clinical Impression/Diagnosis: Right ovarian cyst Condition: Stable Disposition: HOME - Admission No - Follow up/Referral Referrals: Del Trevino MD [Staff Physician] - - Patient Discharge Instructions Additional Instructions: take ibuprofen every 6 hours as needed for pain follow up with your doctor / rehabilitation psychologist as soon as possible return to the ER for any worsening symptoms - Post Discharge Activity
[2020-01-15] MEDS ORDERED: KETOROLAC TROMETHAMINE 30 MG/1 ML VIAL ONE (20:37)
== END 2020-01-15 20:48 | disposition home or self-care (01) ==
LOC: JER 17:28
PROC: 3E0233Z Introduction of Anti-inflammatory into Muscle, Percutaneous Approach (ICD-10-PCS; principal; 2020-01-15)
DX: N83.201 Unspecified ovarian cyst, right side (principal)
CPT/HCPCS: 36415; 76830-TC; 80053; 81003; 84702; 85025; 85610; 85730; 86850; 86900; 86901; 87086; 87491; 87591; 99284-25

== ENCOUNTER 2020-01-28 15:05 | Emergency (ER) | payer OTHER ==
[2020-01-28 15:13] VITALS: BP 93/55; PULSE 104; BMI 20.1
[2020-01-28] MEDS ORDERED: IBUPROFEN 600 MG TABLET (FP) PO ONE ×2 (16:15→17:00)
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
== END 2020-01-28 17:50 | disposition home or self-care (01) ==
LOC: JERFT 15:05
DX: S69.92XA Unspecified injury of left wrist, hand and finger(s), initial encounter (principal)
CPT/HCPCS: 73110-TC-LT-FY; 73110-TC-RT-FY; 73130-TC-LT-FY; 73130-TC-RT-FY; 99284-25